=== PATIENT | male | born 1940 | race Hispanic/Latino ===

== ENCOUNTER 2023-03-04 13:05 | Inpatient (IN) | payer OTHER ==
[2023-03-04 14:46] LABS: #Basophils 0.1 10x3/uL (0.0-0.2); #Eosinphils 0.1 10x3/uL (0.0-0.5); #Monocytes 0.6 10x3/uL (0.0-1.1); #Neutrophils 3.4 10x3/uL (1.5-8.4); %Eosinophils 1.3 % (0.0-6.0); %Lymphocytes 31.1 % (18.0-47.0); %Monocytes 9.8 % (0.0-10.0); %Neutrophils 56.5 % (40.0-75.0); Hematocrit 42.3 % (38.8-50.0); Hemoglobin 14.6 g/dL (13.5-17.5); Mean Corpuscular HGB CONC 34.5 g/dL (32.0-36.0); Mean Corpuscular Volume 89.8 fl (81.2-95.1); Mean Platelet Volume 11.5 fl (7.4-10.4); Platelet Count 187 10x3/uL (150-450); RBC Distribution Width 12.7 % (11.5-14.5); Red Blood Cell (RBC) Count 4.71 10x6/uL (4.32-5.72); White Blood Cell (WBC) Count 6.1 10x3/uL (3.5-10.5)
[2023-03-04 14:50] LABS: ALT (SGPT) 11 U/L (8-55); AST (SGOT) 14 U/L (5-34); Albumin 4.1 g/dL (3.4-4.8); Alkaline Phosphatase 101 U/L (40-110); Anion Gap 13 mmol/L (10-20); BUN (Urea Nitrogen) 10 mg/dL (8.4-25.7); Bilirubin, Total 1.3 mg/dL (0.2-1.2); Calc. Creatinine Clearance 0 mL/min (70-130); Calcium 8.1 mg/dL (7.8-10.44); Carbon Dioxide 21 mmol/L (23-31); Chloride 108 mmol/L (98-107); Estimated GFR 85; Globulin 2.3 g/dL (2.4-3.5); Glucose 172 mg/dL (83-110); Magnesium 2.1 mg/dL (1.6-2.6); Potassium 4.2 mmol/L (3.5-5.1); Protein, Total 6.4 g/dL (5.8-8.1); Sodium 138 mmol/L (136-145)
[2023-03-04 14:54] LABS: Troponin I 0.014 ng/mL (< 0.028)
[2023-03-04 15:02] LABS: Bilirubin Neg (Negative); Blood, Urine Negative (Negative); Clarity Clear (Clear); Glucose, Urine (Dipstick) 100 mg/dL (Negative); Ketone, Urine Negative (Negative); Leukocyte Negative (Negative); Nitrite Negative (Negative); Protein, Urine (Dipstick) 30 mg/dl (Neg-Trace)
[2023-03-04 15:26] LABS: CAUTI Indications for Culture Alt mental st,lethar; RBC/HPF None Seen HPF (0-3); Squamous Epithelial None Seen HPF (0-3); WBC/HPF None Seen HPF (0-3)
[2023-03-04 15:27] LABS: Bacteria/HPF None Seen HPF (None Seen); Urine Culture Reflex No No
[2023-03-04] MEDS ORDERED: Ondansetron ODT 4 MG TAB PO PRN (17:33)
[2023-03-04] MEDS ORDERED: Ondansetron PF 4 MG/2 ML Vial IVP PRN (17:33)
[2023-03-04] MEDS ORDERED: Acetaminophen 325 MG TAB PO PRN (17:33)
[2023-03-04] MEDS ORDERED: HumaLOG 300 UNITS/3 ML VIAL SC PRN (17:54)
[2023-03-04] MEDS ORDERED: Glucagon 1 MG/ML KIT IM PRN (17:54)
[2023-03-04] MEDS ORDERED: Dextrose 50% Abboject 50 ML SYRINGE SLOW IVP PRN (17:54)
[2023-03-04] MEDS ORDERED: Dextrose 5% in Water 1,000 ML IV PRN (17:54)
[2023-03-04 19:07] LABS: Cardiac Risk 3.2 (Less than 4.5)
[2023-03-04 20:11] VITALS: BMI 29.0
[2023-03-04] MEDS ORDERED: Nicotine 14 MG PATCH TD SCH (20:15)
[2023-03-04 22:03] LABS: Hemoglobin A1c 7.5 % (4.0-6.0)
[2023-03-05 06:09] LABS: #Basophils 0.1 10x3/uL (0.0-0.2); #Eosinphils 0.1 10x3/uL (0.0-0.5); #Monocytes 0.7 10x3/uL (0.0-1.1); #Neutrophils 3.3 10x3/uL (1.5-8.4); %Basophils 0.8 % (0.0-2.0); %Eosinophils 1.5 % (0.0-6.0); %Monocytes 10.9 % (0.0-10.0); %Neutrophils 53.6 % (40.0-75.0); Hemoglobin 13.1 g/dL (13.5-17.5); Mean Corpuscular HGB CONC 34.5 g/dL (32.0-36.0); Mean Corpuscular Hemoglobin 30.8 pg (27.0-33.0); Mean Corpuscular Volume 89.2 fl (81.2-95.1); Mean Platelet Volume 11.1 fl (7.4-10.4); Platelet Count 156 10x3/uL (150-450); RBC Distribution Width 12.9 % (11.5-14.5); Red Blood Cell (RBC) Count 4.26 10x6/uL (4.32-5.72); White Blood Cell (WBC) Count 6.2 10x3/uL (3.5-10.5)
[2023-03-05 06:17] LABS: Anion Gap 15 mmol/L (10-20); BUN (Urea Nitrogen) 11 mg/dL (8.4-25.7); Calc. Creatinine Clearance 82 mL/min (70-130); Calcium 8.2 mg/dL (7.8-10.44); Carbon Dioxide 21 mmol/L (23-31); Chloride 109 mmol/L (98-107); Estimated GFR 87; Glucose 139 mg/dL (83-110); Potassium 3.8 mmol/L (3.5-5.1); Sodium 141 mmol/L (136-145)
[2023-03-05] MEDS ORDERED: Calcium Carbonate 500 MG ChewTAB PO PRN (06:57)
[2023-03-05] MEDS ORDERED: Potassium Chloride 20 MEQ TAB PO SCH (10:30)
[2023-03-05] MEDS: HumaLOG 300 UNITS/3 ML VIAL SC PRN (12:44)
[2023-03-05 13:24] LABS: Free T4 (Free Thyroxine) 1.39 ng/dL (0.70-1.48)
[2023-03-05] MEDS ORDERED: Labetalol HCl 100 MG/20 ML VIAL SLOW IVP PRN (14:09)
[2023-03-05] MEDS ORDERED: hydrALAZINE 20 MG/ML VIAL SLOW IVP PRN (14:09)
[2023-03-05] MEDS: glipiZIDE 5 MG TAB PO SCH (17:08)
[2023-03-05] MEDS: Terazosin HCl 1 MG CAP PO SCH (20:27)
[2023-03-05] MEDS: Atorvastatin Calcium 40 MG TAB PO SCH (20:27)
[2023-03-05] MEDS: Carvedilol 12.5 MG TAB PO SCH (20:27)
[2023-03-06 06:16] LABS: #Basophils 0.1 10x3/uL (0.0-0.2); #Eosinphils 0.1 10x3/uL (0.0-0.5); #Monocytes 0.7 10x3/uL (0.0-1.1); #Neutrophils 3.2 10x3/uL (1.5-8.4); %Basophils 0.8 % (0.0-2.0); %Eosinophils 2.2 % (0.0-6.0); %Lymphocytes 34.7 % (18.0-47.0); %Monocytes 10.9 % (0.0-10.0); %Neutrophils 51.2 % (40.0-75.0); Hematocrit 40.7 % (38.8-50.0); Hemoglobin 14.3 g/dL (13.5-17.5); Mean Corpuscular HGB CONC 35.1 g/dL (32.0-36.0); Mean Corpuscular Volume 88.1 fl (81.2-95.1); Platelet Count 167 10x3/uL (150-450); RBC Distribution Width 12.8 % (11.5-14.5); Red Blood Cell (RBC) Count 4.62 10x6/uL (4.32-5.72); White Blood Cell (WBC) Count 6.3 10x3/uL (3.5-10.5)
[2023-03-06] MEDS: Levothyroxine Sodium 100 MCG TAB PO SCH (06:18)
[2023-03-06 06:35] LABS: Anion Gap 14 mmol/L (10-20); BUN (Urea Nitrogen) 10 mg/dL (8.4-25.7); Calc. Creatinine Clearance 83 mL/min (70-130); Calcium 8.6 mg/dL (7.8-10.44); Carbon Dioxide 23 mmol/L (23-31); Chloride 105 mmol/L (98-107); Estimated GFR 87; Glucose 158 mg/dL (83-110); Potassium 3.7 mmol/L (3.5-5.1); Sodium 138 mmol/L (136-145)
[2023-03-06] MEDS: glipiZIDE 5 MG TAB PO SCH ×2 (09:29→16:46)
[2023-03-06] MEDS: Lisinopril 20 MG TAB PO SCH (09:29)
[2023-03-06] MEDS: Carvedilol 12.5 MG TAB PO SCH ×2 (09:29→21:51)
[2023-03-06] MEDS ORDERED: Potassium Chloride 20 MEQ TAB PO SCH (10:30)
[2023-03-06] MEDS ORDERED: Flecainide 50 MG TAB PO SCH (11:00)
[2023-03-06] MEDS: HumaLOG 300 UNITS/3 ML VIAL SC PRN (16:47)
[2023-03-06] MEDS: Atorvastatin Calcium 40 MG TAB PO SCH (21:51)
[2023-03-06] MEDS: Terazosin HCl 1 MG CAP PO SCH (21:51)
[2023-03-06] MEDS: Flecainide 50 MG TAB PO SCH (21:51)
[2023-03-07 04:03] LABS: #Basophils 0.1 10x3/uL (0.0-0.2); #Eosinphils 0.1 10x3/uL (0.0-0.5); #Monocytes 0.8 10x3/uL (0.0-1.1); %Basophils 0.7 % (0.0-2.0); %Eosinophils 1.7 % (0.0-6.0); %Lymphocytes 34.2 % (18.0-47.0); %Monocytes 10.4 % (0.0-10.0); %Neutrophils 52.7 % (40.0-75.0); Hematocrit 42.9 % (38.8-50.0); Mean Corpuscular Hemoglobin 30.9 pg (27.0-33.0); Mean Corpuscular Volume 88.3 fl (81.2-95.1); Mean Platelet Volume 11.3 fl (7.4-10.4); Platelet Count 170 10x3/uL (150-450); RBC Distribution Width 12.5 % (11.5-14.5); Red Blood Cell (RBC) Count 4.86 10x6/uL (4.32-5.72); White Blood Cell (WBC) Count 7.5 10x3/uL (3.5-10.5)
[2023-03-07 04:27] LABS: Anion Gap 12 mmol/L (10-20); BUN (Urea Nitrogen) 15 mg/dL (8.4-25.7); Calc. Creatinine Clearance 80 mL/min (70-130); Carbon Dioxide 26 mmol/L (23-31); Chloride 104 mmol/L (98-107); Estimated GFR 86; Glucose 154 mg/dL (83-110); Magnesium 1.9 mg/dL (1.6-2.6); Potassium 3.6 mmol/L (3.5-5.1); Sodium 138 mmol/L (136-145)
[2023-03-07] MEDS: Levothyroxine Sodium 100 MCG TAB PO SCH (06:24)
[2023-03-07] MEDS: HumaLOG 300 UNITS/3 ML VIAL SC PRN (06:33)
[2023-03-07] MEDS: Lisinopril 20 MG TAB PO SCH (10:16)
[2023-03-07] MEDS: Flecainide 50 MG TAB PO SCH (10:17)
[2023-03-07] MEDS: Carvedilol 12.5 MG TAB PO SCH (10:17)
[2023-03-07] MEDS ORDERED: glipiZIDE 5 MG TAB PO SCH (10:30)
[2023-03-07] MEDS: glipiZIDE 5 MG TAB PO SCH ×2 (10:43→16:45)
[2023-03-07] MEDS ORDERED: Magnesium 2 GM/50 ML(in water) 2 GM in Premix Bag 1 BAG IVPB SCH (10:45)
[2023-03-07] MEDS ORDERED: Potassium Chloride 20 MEQ TAB PO SCH (10:45)
[2023-03-07 17:16] VITALS: BP 153/72; TEMP 97.9
[2023-03-07] MEDS ORDERED: Apixaban 2.5 MG TAB PO SCH (21:00)
== END 2023-03-07 17:00 | disposition home or self-care (01) | DRG 310 ==
LOC: CSHERS 13:05 → EEVIPCON 13:05 → CSHTELE 20:01
PROVIDERS: ADMIT Internal Medicine; ATTEND Internal Medicine
DX: I48.91 Unspecified atrial fibrillation (principal); E11.9 Type 2 diabetes mellitus without complications; K21.9 Gastro-esophageal reflux disease without esophagitis; I11.0 Hypertensive heart disease with heart failure; F17.210 Nicotine dependence, cigarettes, uncomplicated; E03.9 Hypothyroidism, unspecified; E78.5 Hyperlipidemia, unspecified; I50.9 Heart failure, unspecified; Z79.82 Long term (current) use of aspirin; Z98.890 Other specified postprocedural states; Z79.899 Other long term (current) drug therapy; Z79.890 Hormone replacement therapy
CPT/HCPCS: 36415; 36416; 71045; 80048; 80053; 80061; 81001; 83036; 83735; 84439; 84443; 84481; 84484; 85025; 93005; 93010; 93306; 94760; 96360; J1650; J1815; J3475

== ENCOUNTER 2023-04-26 14:40 | Emergency (ER) | payer OTHER ==
[2023-04-26 16:23] LABS: #Basophils 0.1 10x3/uL (0.0-0.2); #Eosinphils 0.1 10x3/uL (0.0-0.5); #Monocytes 0.6 10x3/uL (0.0-1.1); #Neutrophils 3.9 10x3/uL (1.5-8.4); %Basophils 0.7 % (0.0-2.0); %Eosinophils 2.1 % (0.0-6.0); %Lymphocytes 28.7 % (18.0-47.0); %Monocytes 9.4 % (0.0-10.0); %Neutrophils 58.7 % (40.0-75.0); Hemoglobin 14.3 g/dL (13.5-17.5); Mean Corpuscular HGB CONC 34.9 g/dL (32.0-36.0); Mean Corpuscular Hemoglobin 31.8 pg (27.0-33.0); Mean Corpuscular Volume 91.3 fl (81.2-95.1); Mean Platelet Volume 10.9 fl (7.4-10.4); Platelet Count 228 10x3/uL (150-450); RBC Distribution Width 14.1 % (11.5-14.5); Red Blood Cell (RBC) Count 4.49 10x6/uL (4.32-5.72); White Blood Cell (WBC) Count 6.7 10x3/uL (3.5-10.5)
[2023-04-26 16:38] LABS: ALT (SGPT) 13 U/L (8-55); AST (SGOT) 14 U/L (5-34); Albumin 4.1 g/dL (3.4-4.8); Alkaline Phosphatase 125 U/L (40-110); Anion Gap 12 mmol/L (10-20); BUN (Urea Nitrogen) 12 mg/dL (8.4-25.7); Bilirubin, Total 0.9 mg/dL (0.2-1.2); CK (CPK) 39 U/L (30-200); Calc. Creatinine Clearance 0 mL/min (70-130); Carbon Dioxide 26 mmol/L (23-31); Chloride 103 mmol/L (98-107); Estimated GFR 73; Globulin 3.1 g/dL (2.4-3.5); Glucose 115 mg/dL (83-110); Potassium 4.2 mmol/L (3.5-5.1); Protein, Total 7.2 g/dL (5.8-8.1); Sodium 137 mmol/L (136-145)
== END 2023-04-26 17:05 ==
LOC: EEVIPCON 14:40 → CSHERS 14:40
DX: I82.401 Acute embolism and thrombosis of unspecified deep veins of right lower extremity (principal); I11.9 Hypertensive heart disease without heart failure; I50.9 Heart failure, unspecified; K21.9 Gastro-esophageal reflux disease without esophagitis; E11.9 Type 2 diabetes mellitus without complications; E03.9 Hypothyroidism, unspecified; E78.00 Pure hypercholesterolemia, unspecified; F17.210 Nicotine dependence, cigarettes, uncomplicated; Z79.84 Long term (current) use of oral hypoglycemic drugs; Z79.899 Other long term (current) drug therapy
CPT/HCPCS: 80053; 82550; 85025; 85379; 93923; 96372; J1650